=== PATIENT | male | born 1995 | race Caucasian/White ===

== ENCOUNTER 2023-07-08 14:02 | Emergency (ER) | payer OTHER, SELFPAY ==
[2023-07-08 14:04] VITALS: BP 159/95
[2023-07-08 14:30] LABS: COVID-19 Antigen Positive (Negative)
--- NOTE | 2023-07-08 15:42 | ED.GENMED ---
History of Present Illness
General
Chief Complaint: Dizziness
Source: patient
Time Seen by Provider: 07/08/23 15:00
Travel History
Have you had any contact with someone who has COVID-19?: No
Do you have any symptoms of coronavirus? Fever > 100 degrees, chills, cough, shortness of breath, sore throat, loss of taste or smell, muscle aches, or headache?: No
History of Present Illness
History of Present Illness:
28-year-old male with no significant past medical history presenting the emergency department for evaluation of fever, fatigue and dizziness that started yesterday. Patient has been taking some Motrin and Tylenol at home as needed. Denies any
known sick contacts, recent travel or recent antibiotics. No abdominal pain, vomiting, urinary symptoms or bowel changes.
Past History
Past History
ED Past Medical History: None
ED Past Surgical History: None
Social History
Tobacco: Non-smoker
Alcohol: Occasional
Drug: None
Personal:
Living: with family
Employment: Employed
Review of Systems
Review of Systems
All Other Systems: ROS reviewed and negative except as documented in HPI and ROS
Phy Exam
Physical Exam
Physical Exam:
GENERAL: Alert , in no apparent distress
EYE: conjunctiva clear
NECK: Supple
ENT: o/p clr, mmm.
CARDIAC: Regular rate and rhythm
LUNGS: Clear breath sounds bilaterally, no acute respiratory distress, no wheezes/rales/rhonchi
NEUROLOGICAL: Alert and oriented
SKIN: Warm and dry, skin intact.
MUSCULOSKELETAL: well perfused.
PSYCH: Normal and appropriate interaction.
Scores
Heart Failure Risk
Heart Failure Risk Score: Not Applicable
Heart Score for Chest Pain Patients
STEMI patient?: Not applicable
Withdrawal Assessment of Alcohol
Withdrawal Assessment Completed?: Not applicable
Course
Orders/Labs/Results
Orders:
Orders
07/08/23 14:09
COVID-19 Antigen Urgent
Source: Nasal Swab
Influenza A+B Rapid Molecular Urgent
[facility] Source: Nasal Swab
Specimen Description:
07/08/23 14:24
Acetaminophen [Tylenol] 1,000 mg PO NOW STA
Abnormal Lab Results
07/08/23
14:09
SARS-CoV-2 Antigen Positive A
(Negative)
Vital Signs
Initial and Last Documented VS:
Initial Vital Signs
Temp Pulse Resp BP Pulse Ox
100.9 F H 111 18 159/95 100
07/08/23 14:04 07/08/23 14:04 07/08/23 14:04 07/08/23 14:04 07/08/23 14:04
Last Documented Vital Signs
Temp Pulse Resp BP Pulse Ox
100.9 F H 111 18 159/95 100
07/08/23 14:04 07/08/23 14:04 07/08/23 14:04 07/08/23 14:04 07/08/23 14:04
MDM/Problems Addressed
Differential Diagnosis Includes:
COVID, flu, viral etiology, pneumonia
MDM/Problems Addressed:
28-year-old male present emergency department for 24 hours of flulike symptoms. COVID and flu testing was initiated in triage and patient ultimately did test positive for COVID. He notes he has been vaccinated for COVID in the past as well as has
had COVID before. Patient is in no acute distress. Continue Motrin/Tylenol as needed for fevers. Advised on quarantine measures. Otherwise stable for
*Pulse Oximetry
Patient hypoxic: no
*Critical Care Note
Total Time (30-74mins, 75-104mins- exclusive of procedures): Not Applicable
ED Attending Note
-
Portions of this chart may have been created with voice recognition software.� Occasional wrong word or��sound alike� substitutions may have occurred due to the inherent limitations of voice recognition software.
Discharge Plan
Departure
Patient Disposition: Home (Routine Discharge)
Date of Disposition: 07/08/23
Time of Disposition: 15:43
Patient with high blood pressure during this ER visit?: Yes
Discharge Problem:
COVID-19
Instructions: COVID-19 (DC)
Referrals:
Eloisa España, [Family Provider] -
Interventions
Interventions:
*Risk Screen - Suicide Last Done: 07/08/23 14:04
*General Assessment Last Done: 07/08/23 14:04
*Neglect/Abuse Screening Last Done: 07/08/23 14:04
ED- Fall Risk Assessment Last Done: 07/08/23 16:12
*ED COVID-19 Vaccine History Last Done: 07/08/23 14:04
*Nursing Disposition Last Done: 07/08/23 16:12
ED- Neurological Assessment Last Done: 07/08/23 16:11
Discharge Date and Time
Discharge Date/Time: 07/08/23 16:12
Print Language: MALAYSIAN
== END 2023-07-08 16:12 | disposition home or self-care (01) ==
LOC: EMR 14:02
PROVIDERS: Emergency Medicine; EMERGENCY PHYSICIAN Emergency Medicine; FAMILY PHYSICIAN Family Medicine
DX: U07.1 COVID-19 (principal); R42 Dizziness and giddiness; Z11.52 Encounter for screening for COVID-19; R03.0 Elevated blood-pressure reading, without diagnosis of hypertension
CPT/HCPCS: 99283; 87502; 87811